=== PATIENT | male | born 1975 | race Caucasian/White ===

== ENCOUNTER 2016-07-14 20:11 | Emergency (ER) | payer BC ==
[2016-02-14 13:26] VITALS: BMI 33.2
[~2016-07-14 20:11] MED LIST: ELAVIL25 MG PO; FLAGYL500 MG PO; LEVAQUIN500 MG PO; LISINOPRIL5 MG PO
== END 2016-07-14 23:33 | disposition left against medical advice (07) ==
LOC: D.ER 20:11
DX: G89.18 Other acute postprocedural pain (principal)

== ENCOUNTER 2016-10-22 11:45 | Emergency (ER) | payer BC ==
[2016-02-14 13:26] VITALS: BMI 33.2
[2016-10-22 12:13] LABS: BASOPHILS 0.4 % (0-2); EOSINOPHILS 1.1 % (0-7); HEMATOCRIT 47.7 % (42.0-54.0); HEMOGLOBIN 16.7 g/dL (13.5-17.5); IMMATURE GRANULOCYTES 0.1 % (0-5); MCH 31.3 pg (26.0-34.0); MCV 89.5 fL (80.0-100.0); NEUTROPHILS 61.4 % (40-80); PLATELET COUNT 206 10x3/uL (130-400); RBC 5.33 10x6/uL (4.20-6.10); RDW 12.8 % (11.5-14.5); WBC 7.1 10x3/uL (4.8-10.8)
[2016-10-22 12:18] LABS: APPEARANCE CLEAR (CLEAR); BILIRUBIN NEGATIVE (NEGATIVE); COLOR YELLOW (YELLOW); GLUCOSE NEGATIVE (NEGATIVE); KETONE NEGATIVE (NEGATIVE); LEUKOCYTE ESTERASE NEGATIVE (NEGATIVE); NITRITE NEGATIVE (NEGATIVE); PROTEIN NEGATIVE (NEGATIVE); UROBILINOGEN NORMAL (NORMAL)
[2016-10-22 12:31] LABS: UDS - AMPHET NEGATIVE QUAL (NEGATIVE); UDS - BARB NEGATIVE QUAL (NEGATIVE); UDS - BENZO POSITIVE QUAL (NEGATIVE); UDS - COCAINE NEGATIVE QUAL (NEGATIVE); UDS - METH NEGATIVE QUAL (NEGATIVE); UDS - OPIATE NEGATIVE QUAL (NEGATIVE); UDS - PCP NEGATIVE QUAL (NEGATIVE); UDS - THC POSITIVE QUAL (NEGATIVE)
[2016-10-22 12:33] LABS: ALBUMIN 3.6 g/dL (3.4-5.0); ALKALINE PHOSPHATASE 115 U/L (46-116); ALT (SGPT) 243 U/L (10-68); BILIRUBIN - TOTAL 0.41 mg/dL (0.2-1.3); CALC OSMOLALITY 281 mosm/kg (275-300); CARBON DIOXIDE 27.6 mmol/L (21.0-32.0); CHLORIDE - SERUM 106 mmol/L (98-107); GLUCOSE 99 mg/dL (74-106); POTASSIUM - SERUM 4.4 mmol/L (3.5-5.1); PROTEIN - SERUM 7.6 g/dL (6.4-8.2); SODIUM 142 mmol/L (136-145); UREA NITROGEN 10 mg/dL (7-18); eGFR NON AFRICAN AMERICAN 87 mL/min (90-120)
== END 2016-10-22 16:05 | disposition home or self-care (01) ==
LOC: D.ER 11:45
PROVIDERS: Emergency Medicine
DX: R45.851 Suicidal ideations (principal); I10 Essential (primary) hypertension; F32.9 Major depressive disorder, single episode, unspecified

== ENCOUNTER 2016-12-20 17:59 | Emergency (ER) | payer BC ==
[2016-02-14 13:26] VITALS: BMI 33.2
[2016-12-20 19:16] LABS: BASOPHILS 0.4 % (0-2); EOSINOPHILS 3.5 % (0-7); HEMATOCRIT 47.4 % (42.0-54.0); HEMOGLOBIN 16.6 g/dL (13.5-17.5); IMMATURE GRANULOCYTES 0.3 % (0-5); LYMPHOCYTES 34.3 % (15-50); MCH 31.2 pg (26.0-34.0); MCV 89.1 fL (80.0-100.0); MEAN PLATELET VOLUME 9.4 fL (7.4-10.4); MONOCYTES 10.5 % (2-11); PLATELET COUNT 205 10x3/uL (130-400); RBC 5.32 10x6/uL (4.20-6.10); RDW 12.5 % (11.5-14.5); WBC 7.5 10x3/uL (4.8-10.8)
[2016-12-20 19:29] LABS: ALBUMIN 3.6 g/dL (3.4-5.0); ALKALINE PHOSPHATASE 89 U/L (46-116); ALT (SGPT) 78 U/L (10-68); BILIRUBIN - TOTAL 0.48 mg/dL (0.2-1.3); CALC OSMOLALITY 273 mosm/kg (275-300); CALCIUM 8.9 mg/dL (8.5-10.1); CARBON DIOXIDE 29.3 mmol/L (21.0-32.0); CHLORIDE - SERUM 102 mmol/L (98-107); CREATININE - SERUM 1.1 mg/dL (0.6-1.3); GLUCOSE 80 mg/dL (74-106); POTASSIUM - SERUM 3.6 mmol/L (3.5-5.1); PROTEIN - SERUM 7.6 g/dL (6.4-8.2); SODIUM 138 mmol/L (136-145); UREA NITROGEN 9 mg/dL (7-18); eGFR NON AFRICAN AMERICAN 78 mL/min (90-120)
[2016-12-20 19:41] LABS: CKMB 0.3 U/L (0.0-3.6); CREATINE KINASE 80 UL (21-232)
[2016-12-20 19:54] LABS: TROPONIN-I < 0.017 ng/mL (0.000-0.060)
== END 2016-12-20 21:55 | disposition home or self-care (01) ==
LOC: D.ER 17:59
PROVIDERS: Emergency Medicine
DX: R07.9 Chest pain, unspecified (principal); I25.10 Atherosclerotic heart disease of native coronary artery without angina pectoris; I10 Essential (primary) hypertension; R00.1 Bradycardia, unspecified; R11.2 Nausea with vomiting, unspecified

== ENCOUNTER 2016-12-25 14:23 | Observation (INO) | payer BC ==
[~2016-12-25] VITALS: Ht 182.9 cm; Wt 123.6 kg
--- NOTE | ~2016-12-25 | DS ---
PATIENT:RUTH LOPEZ :73 MEDICAL RECORD: [id number] DISCHARGE SUMMARY ADMISSION DATE: 12/25/16 DISCHARGE DATE: 12/28/16 DISCHARGE DIAGNOSES: Distal esophageal ulcers, hiatal hernia, antral ulcers, erosive esophagitis, atypical chest pain, symptomatic bradycardia, obesity. CONSULTANTS: Dr. Ely from cardiology, Dr. Masterson, GI. HOSPITAL COURSE: A 41-year-old male admitted with left anterior chest pain radiating to his jaw and arm. He is also bradycardic with a rate in the mid 30s. He was placed on telemetry and did show evidence of significant bradycardia, but no pauses. Cardiology and GI consults were obtained. Initial cardiac enzymes were unremarkable. Echocardiogram showed normal LV function. Dr. Ely felt the patient had a hypercholinergic cause for his bradycardia due to possibly his chest pain and/or gastrointestinal etiology. He underwent an EGD showing above findings. He is overall feeling better after 2 days of IV Protonix. A Transderm Scop patch was placed last night and his heart rate did improve in the upper 50s to low 60s. To be discharged in improved condition and followup in my office in [address] Masterson's office in 2 months for repeat EGD. DISCHARGE MEDICATIONS: Prilosec 40 mg p.o. q.a.m., famotidine 40 mg p.o. at bedtime. He will not take any NSAID currently. Xanax 0.5 at h.s. p.r.n. anxiety, tramadol 50 mg 1-2 q.6 hours for severe pain. ACTIVITY: Progress as tolerated. DIET: Low cholesterol. FOLLOWUP: Return to clinic to see me in 1 week. TRANSINT:[id number] Voice Confirmation ID: [id number] DOCUMENT ID: [id number] DAVID MARIA MD CC: [id number] DICTATION DATE: 12/28/16806 COMPUTER SCIENCE INTERN: 12/29/16 0044 DIS IN 12/28/16 [place] [id number] [place] [id number]
--- NOTE | 2016-12-25 15:03 | NUR ---
TRANSFER FROM ADMISSIONS BY W/C. OREINTED TO ROOM. CALL LIGHT IN REACH. WILL CONT. PLAN OF CARE.
[2016-12-25 15:13] VITALS: BP 112/65; Ht 182.9 cm; Wt 123.6 kg
[2016-12-25] MEDS ORDERED: XANAX0.5 MG PO (15:18)
--- NOTE | 2016-12-25 16:00 | NUR ---
IV STARTED TO RIGHT AC WITH 22 GAUGE CATH X 1 STICK AND FLUSHED WITH NS. LINE IS PATENT.
[2016-12-25 17:01] LABS: BASOPHILS 0.4 % (0-2); EOSINOPHILS 2.6 % (0-7); HEMATOCRIT 46.9 % (42.0-54.0); HEMOGLOBIN 16.5 g/dL (13.5-17.5); IMMATURE GRANULOCYTES 0.3 % (0-5); LYMPHOCYTES 29.1 % (15-50); MCH 31.5 pg (26.0-34.0); MCHC 35.2 g/dL (31.0-37.0); MCV 89.7 fL (80.0-100.0); MEAN PLATELET VOLUME 9.3 fL (7.4-10.4); MONOCYTES 12.9 % (2-11); NEUTROPHILS 54.7 % (40-80); PLATELET COUNT 196 10x3/uL (130-400); RBC 5.23 10x6/uL (4.20-6.10); RDW 12.2 % (11.5-14.5); WBC 7.5 10x3/uL (4.8-10.8)
[2016-12-25 17:43] VITALS: BP 112/65
[2016-12-25 17:51] LABS: ALBUMIN 3.7 g/dL (3.4-5.0); ALKALINE PHOSPHATASE 94 U/L (46-116); ALT (SGPT) 69 U/L (10-68); BILIRUBIN - TOTAL 0.28 mg/dL (0.2-1.3); CALC OSMOLALITY 273 mosm/kg (275-300); CALCIUM 8.8 mg/dL (8.5-10.1); CHLORIDE - SERUM 103 mmol/L (98-107); CKMB 0.3 U/L (0.0-3.6); CREATINE KINASE 88 UL (21-232); CREATININE - SERUM 0.9 mg/dL (0.6-1.3); GLUCOSE 68 mg/dL (74-106); POTASSIUM - SERUM 4.2 mmol/L (3.5-5.1); PROTEIN - SERUM 7.3 g/dL (6.4-8.2); SODIUM 139 mmol/L (136-145); T4 THYROXINE 6.2 ug/dL (4.7-13.3); THYROID STIMULATING HORMONE 2.47 uIU/mL (0.36-3.74); TROPONIN-I < 0.017 ng/mL (0.000-0.060); UREA NITROGEN 8 mg/dL (7-18); eGFR NON AFRICAN AMERICAN > 90 mL/min (90-120)
--- NOTE | 2016-12-25 18:16 | HP ---
PATIENT: RUTH LOPEZ MEDICAL RECORD: [id number] ACCOUNT: [id number] LOCATION:[address] : 74 ADMISSION DATE: 12/25/16 HISTORY AND PHYSICAL EXAMINATION REASON FOR ADMISSION: Chest and neck pain and symptomatic bradycardia. HISTORY OF PRESENT ILLNESS: The patient is a 41-year-old male with history of essential hypertension, remote alcohol excess and obesity. He states approximately 5 days ago, he felt lightheaded, trying to get out of his truck, he almost fainted. His had an O2 sat finger monitor and noticed that his heart rate was in the mid 30s. He also had experienced some left-sided chest discomfort into his left neck and arm. He had no nausea or vomiting. He presented to the Emergency Room, was evaluated by Dr. Arguello. His heart rate was in the upper 40s, cardiac enzymes, CBC and BMP were all normal and EKG was reported as unremarkable as well as a chest x-ray. Thyroid functions were not obtained. He was given analgesics and his pain improved and he went home. He says the chest pain has come back. It waxes and wanes, but not totally resolved. It does not seem to be exertional. He stands up too quickly and gets very lightheaded. His heart rate has been as low as 29 beats per minute, he states. He presented in my office with these complaints. Today, his heart rate was in the mid 40s. His EKG shows sinus bradycardia with a flipped T-wave in lead III, but did not have this in prior EKG. Because of his chest pain and bradycardia, he is now being admitted to the hospital observation unit for telemetry and cardiology consultation. PAST MEDICAL HISTORY: Essential hypertension, anxiety, alcohol excess currently abstinent, PTSD, depression, history of colitis and transrectal bleeding in 2016. Socially, he denies smoking. He had history of heavy alcohol use, quit in the last 6 months. 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 ALLERGIES: None known. CURRENT MEDICATIONS: Xanax 0.5 at h.s. p.r.n. anxiety. He has stopped his lisinopril. 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 He used to drink heavily, quit about 6 months ago when he had an increasing anxiety and trouble with PTSD. FAMILY HISTORY: His father of lung cancer, also had CAD and heart disease and a sick sinus syndrome with a pacemaker. Mother had history of cardiac arrhythmias, type unknown. REVIEW OF SYSTEMS: GENERAL: He has been very fatigued for the last week. No fever. HEENT: No recent visual change, sinus congestion, or sore throat. RESPIRATORY: No severe cough. CARDIAC: No exertional chest pain, but has had continuous pain, dull and aching in his left chest up into his neck and arm, shoulder area, not below the elbow. Not related to activity. No nausea or vomiting associated with it. He states his heart has been very low as low as 29 beats per minute based on O2 sat HISTORY AND PHYSICAL [id number] RUTH LOPEZ DAFNE monitor his purchased. It has not been over 50, he says, much in the last 5 days. GENITOURINARY: No dysuria or nocturia. ENDOCRINE: He denies polyuria, polydipsia, heat or cold intolerance. NEUROLOGIC: No history of stroke, TIA, or vascular headaches. He is not complaining of significant dizziness that relates to his low heart rate. INTEGUMENT: No rash or itching. PSYCHIATRIC: Admits to anxiety, but not depressed mood. He has trouble with chronic insomnia. PHYSICAL EXAMINATION: VITAL SIGNS: Heart rate is 45 beats per minute and regular. Blood pressure 132/70, O2 sat 97% on room air. Height is 5 feet 10 inches, weight 276 pounds, BMI of 39.6. GENERAL: The patient is alert and anxious. HEENT: Eyes are clear. Oropharynx unremarkable. NECK: Supple, without bruits or masses. CHEST: Clear without wheeze or rales. HEART: Bradycardic without murmur. Chest wall is nontender. ABDOMEN: Obese, soft, and nontender. EXTREMITIES: No gross edema. He has post-surgical changes in index fingers bilaterally. INTEGUMENTARY: No rash appreciated. PSYCHIATRIC: He is anxious, but denies major depressive symptoms. LABORATORY DATA: From [facility] a week ago was essentially normal. DIAGNOSTIC DATA: EKG shows sinus bradycardia with inverted T-wave in lead III. ASSESSMENT: 1. Atypical chest pain. 2. Essential hypertension, currently noncompliant with lisinopril. 3. Bradycardia, symptomatic (?). 4. Posttraumatic stress disorder. 5. History of colitis. PLAN: The patient will be admitted to observation for cardiac monitoring, cardiac enzymes. Further workup pending clinical course. TRANSINT:[id number] Voice Confirmation ID: [id number] DOCUMENT ID: [id number] DAVID MARIA MD at 1816 CC: [id number] DICTATION DATE: 12/25/16 1324 DAMPER FITTER: 12/25/16 1434 ADM IN [place] [id number] [place] [id number]
[2016-12-25 20:00] VITALS: BP 120/88
--- NOTE | 2016-12-25 20:51 | NUR ---
PT RESTLESS. C/O PAIN 10/10 IN CHEST AREA. MEDICATED WITH MORPHINE 2MG SIVP FOR CHEST PAIN. SR PER TELEMETRY. PIV TO RIGHT A/C. WILL MONITOR RESPONSE TO PAIN MEDS/XANAX GIVEN. SEE ASSESSMENT AND MONITOR.
[2016-12-25 21:38] LABS: HELICOBACTER PYLORI IGG NEGATIVE (NEGATIVE)
--- NOTE | 2016-12-26 04:55 | NUR ---
PT RESTING WELL, HAS AWAKENED ONCE AND REQUESTED PAIN MEDS FOR RECURRENT CHEST PAIN. AFTER ADMINISTERING IV MORPHINE, PT BACK TO SLEEP. NPO UNTIL SEEN BY MOLDED GOODS INSPECTOR TRIMMER. CPOC.
[2016-12-26 06:26] LABS: AMYLASE - SERUM 60 U/L (25-115); LIPASE 127 U/L (73-393)
--- NOTE | 2016-12-26 07:53 | NUR ---
RESTING QUIETLY RESP UNLABORED DENIES ANY NEEDS AT THIS TIME
[2016-12-26 09:26] VITALS: BP 113/59
[2016-12-26 16:30] VITALS: BP 113/63
[2016-12-26 17:59] VITALS: BP 135/77
--- NOTE | 2016-12-26 21:37 | NUR ---
MEDICATED WITH BEDTIME MEDS AND REQUESTED DILAUDID FOR ABDOMINAL/CHEST PAIN 12/14.
[2016-12-27 01:10] VITALS: BP 121/69
[2016-12-27 05:04] VITALS: BP 120/69
[2016-12-27 05:57] LABS: BASOPHILS 0.4 % (0-2); EOSINOPHILS 3.9 % (0-7); HEMATOCRIT 49.4 % (42.0-54.0); HEMOGLOBIN 17.1 g/dL (13.5-17.5); IMMATURE GRANULOCYTES 0.2 % (0-5); LYMPHOCYTES 32.3 % (15-50); MCH 31.4 pg (26.0-34.0); MCHC 34.6 g/dL (31.0-37.0); MCV 90.6 fL (80.0-100.0); MEAN PLATELET VOLUME 9.5 fL (7.4-10.4); MONOCYTES 13.6 % (2-11); NEUTROPHILS 49.6 % (40-80); PLATELET COUNT 193 10x3/uL (130-400); RBC 5.45 10x6/uL (4.20-6.10); RDW 12.5 % (11.5-14.5)
[2016-12-27 06:01] LABS: WBC 5.1 10x3/uL (4.8-10.8)
[2016-12-27 06:10] LABS: INR 0.99 (0.85-1.17); PROTIME 12.9 SECONDS (11.6-15.0)
[2016-12-27 06:16] LABS: ALBUMIN 3.3 g/dL (3.4-5.0); ALKALINE PHOSPHATASE 87 U/L (46-116); ALT (SGPT) 77 U/L (10-68); AMYLASE - SERUM 69 U/L (25-115); CALC OSMOLALITY 269 mosm/kg (275-300); CALCIUM 8.4 mg/dL (8.5-10.1); CARBON DIOXIDE 28.8 mmol/L (21.0-32.0); CHLORIDE - SERUM 101 mmol/L (98-107); GLUCOSE 71 mg/dL (74-106); SODIUM 136 mmol/L (136-145); eGFR NON AFRICAN AMERICAN 87 mL/min (90-120)
[2016-12-27 06:17] LABS: UREA NITROGEN 12 mg/dL (7-18)
[2016-12-27 08:32] VITALS: BP 130/76
--- NOTE | 2016-12-27 10:16 | NUR ---
TELEMETRY SR. NPO FOR EGD. CONCENTS SIGNED.
[2016-12-27 11:59] VITALS: BP 153/86
[2016-12-27 15:24] VITALS: BP 159/99
--- NOTE | 2016-12-27 15:38 | NUR ---
PRE-OPS GIVEN. TO GI LAB BY BED.
--- NOTE | 2016-12-27 19:25 | NUR ---
RESUMED CARE OF PT, LYING IN BED RESPIRATIONS EVEN AND UNLABORED ON ROOM AIR. REQUESTS DILAUDID FOR PAIN. 62 SR ON TELEMETRY. RIGHT AC SALINE LOCKED. CALL LIGHT IN REACH. WILL CONTINUE TO MONITOR. SEE NURSE ASSESSMENT.
[2016-12-27 20:00] VITALS: BP 134/82
--- NOTE | 2016-12-28 01:07 | NUR ---
CALL LIGHT IN REACH. WILL CONTINUE TO MONITOR.
[2016-12-28 05:11] VITALS: BP 113/60
[2016-12-28] MEDS ORDERED: OMEPRAZOLE40 MG PO (08:08)
[2016-12-28] MEDS ORDERED: PEPCID40 MG PO (08:08)
[2016-12-28] MEDS ORDERED: TRANSDERM-SCO1 PATCH TRANSDERM (08:12)
[2016-12-28] MEDS ORDERED: ULTRACET TABLET1 TAB PO (08:13)
[2016-12-28 08:33] VITALS: BP 147/94
--- NOTE | 2016-12-28 09:52 | NUR ---
IV AND TELEMETRY DCD. DC PLANS GIVEN. UNDERSTANDING VOICED. ESCORTED TO CAR BY W/C.
== END 2016-12-28 09:53 | disposition home or self-care (01) ==
LOC: D.M2 14:23 → OBSVTIME 14:23 → D.M2 14:23
PROVIDERS: Internal Medicine Gastroenterology; ADMIT Family Medicine
DX: K22.10 Ulcer of esophagus without bleeding (principal); K44.9 Diaphragmatic hernia without obstruction or gangrene; K25.9 Gastric ulcer, unspecified as acute or chronic, without hemorrhage or perforation; R00.1 Bradycardia, unspecified; I10 Essential (primary) hypertension; E66.9 Obesity, unspecified; F41.8 Other specified anxiety disorders; F43.10 Post-traumatic stress disorder, unspecified

== ENCOUNTER → 2017-01-15 09:47 | Outpatient (CLI) | payer BC ==
[2016-12-25 15:13] VITALS: BMI 36.9
[~2017-01-15 09:47] MED LIST changes: +OMEPRAZOLE40 MG PO; +PEPCID40 MG PO; +TRANSDERM-SCO1 PATCH TRANSDERM; +ULTRACET TABLET1 TAB PO; +XANAX0.5 MG PO
== END | disposition home or self-care (01) ==
LOC: D.MRI 09:47
DX: G54.3 Thoracic root disorders, not elsewhere classified (principal)

== ENCOUNTER → 2017-12-26 14:15 | Outpatient (CLI) | payer BC ==
[2016-12-25 15:13] VITALS: BMI 36.9
[~2017-12-26 14:15] MED LIST changes: +FLORAJEN3 CAPS460 MG PO; +KEFLEX500 MG PO
== END | disposition home or self-care (01) ==
LOC: D.CT 14:15
DX: K62.3 Rectal prolapse (principal)

== ENCOUNTER 2018-01-21 19:49 | Inpatient (IN) | payer OTHER ==
[~2018-01-21] VITALS: Ht 182.9 cm; Wt 94.5 kg
[~2018-01-21 19:49] MED LIST changes: -FLORAJEN3 CAPS460 MG PO; -KEFLEX500 MG PO
[2018-01-21 21:03] LABS: BASOPHILS 0.2 % (0-2); EOSINOPHILS 1.6 % (0-7); HEMATOCRIT 45.8 % (42.0-54.0); HEMOGLOBIN 16.6 g/dL (13.5-17.5); IMMATURE GRANULOCYTES 0.2 % (0-5); MCH 31.6 pg (26.0-34.0); MCHC 36.2 g/dL (31.0-37.0); MCV 87.1 fL (80.0-100.0); MONOCYTES 11.3 % (2-11); NEUTROPHILS 62.7 % (40-80); PLATELET COUNT 219 10x3/uL (130-400); RBC 5.26 10x6/uL (4.20-6.10); RDW 12.6 % (11.5-14.5)
[2018-01-21 21:19] LABS: ALKALINE PHOSPHATASE 71 U/L (46-116); ALT (SGPT) 25 U/L (10-68); BILIRUBIN - TOTAL 0.37 mg/dL (0.2-1.3); CALC OSMOLALITY 282 mosm/kg (275-300); CALCIUM 9.1 mg/dL (8.5-10.1); CARBON DIOXIDE 26.1 mmol/L (21.0-32.0); CHLORIDE - SERUM 105 mmol/L (98-107); GLUCOSE 87 mg/dL (74-106); POTASSIUM - SERUM 4.7 mmol/L (3.5-5.1); SODIUM 141 mmol/L (136-145); UREA NITROGEN 21 mg/dL (7-18); eGFR NON AFRICAN AMERICAN 87 mL/min (90-120)
[2018-01-21 21:24] LABS: C-REACTIVE PROTEIN < 0.2 mg/dL (0.0-0.9)
[2018-01-22 05:02] LABS: BASOPHILS 0.2 % (0-2); EOSINOPHILS 1.7 % (0-7); HEMATOCRIT 43.8 % (42.0-54.0); HEMOGLOBIN 15.6 g/dL (13.5-17.5); IMMATURE GRANULOCYTES 0.2 % (0-5); LYMPHOCYTES 29.5 % (15-50); MCH 31.3 pg (26.0-34.0); MCHC 35.6 g/dL (31.0-37.0); MCV 87.8 fL (80.0-100.0); MEAN PLATELET VOLUME 8.9 fL (7.4-10.4); MONOCYTES 10.7 % (2-11); NEUTROPHILS 57.7 % (40-80); PLATELET COUNT 195 10x3/uL (130-400); RBC 4.99 10x6/uL (4.20-6.10); RDW 12.7 % (11.5-14.5)
[2018-01-22 05:08] LABS: WBC 8.6 10x3/uL (4.8-10.8)
[2018-01-22 05:20] LABS: ALBUMIN 3.6 g/dL (3.4-5.0); ALKALINE PHOSPHATASE 54 U/L (46-116); ALT (SGPT) 22 U/L (10-68); BILIRUBIN - TOTAL 0.48 mg/dL (0.2-1.3); CALC OSMOLALITY 278 mosm/kg (275-300); CALCIUM 8.3 mg/dL (8.5-10.1); CARBON DIOXIDE 27.2 mmol/L (21.0-32.0); CHLORIDE - SERUM 106 mmol/L (98-107); GLUCOSE 92 mg/dL (74-106); POTASSIUM - SERUM 3.9 mmol/L (3.5-5.1); PROTEIN - SERUM 6.8 g/dL (6.4-8.2); SODIUM 139 mmol/L (136-145); UREA NITROGEN 16 mg/dL (7-18); eGFR NON AFRICAN AMERICAN 87 mL/min (90-120)
[2018-01-22 09:23] VITALS: BP 141/93
[2018-01-22 15:29] VITALS: BP 167/78; BMI 28.2
[2018-01-22 19:43] VITALS: Ht 182.9 cm; Wt 94.5 kg
[2018-01-22 20:00] VITALS: BP 136/87
[2018-01-23 04:00] VITALS: BP 160/102
[2018-01-23 06:13] LABS: BASOPHILS 0.2 % (0-2); EOSINOPHILS 3.3 % (0-7); HEMATOCRIT 43.5 % (42.0-54.0); HEMOGLOBIN 15.3 g/dL (13.5-17.5); IMMATURE GRANULOCYTES 0.1 % (0-5); MCH 30.6 pg (26.0-34.0); MCHC 35.2 g/dL (31.0-37.0); MEAN PLATELET VOLUME 9.2 fL (7.4-10.4); MONOCYTES 9.4 % (2-11); PLATELET COUNT 196 10x3/uL (130-400); RDW 12.4 % (11.5-14.5); WBC 9.1 10x3/uL (4.8-10.8)
[2018-01-23 06:30] LABS: ALBUMIN 3.4 g/dL (3.4-5.0); ALKALINE PHOSPHATASE 46 U/L (46-116); ALT (SGPT) 25 U/L (10-68); BILIRUBIN - TOTAL 0.59 mg/dL (0.2-1.3); CALC OSMOLALITY 277 mosm/kg (275-300); CALCIUM 8.3 mg/dL (8.5-10.1); CARBON DIOXIDE 28.5 mmol/L (21.0-32.0); CHLORIDE - SERUM 104 mmol/L (98-107); CREATININE - SERUM 0.9 mg/dL (0.6-1.3); GLUCOSE 91 mg/dL (74-106); POTASSIUM - SERUM 3.4 mmol/L (3.5-5.1); PROTEIN - SERUM 6.9 g/dL (6.4-8.2); SODIUM 140 mmol/L (136-145); eGFR NON AFRICAN AMERICAN > 90 mL/min (90-120)
[2018-01-23 06:33] LABS: UREA NITROGEN 10 mg/dL (7-18)
[2018-01-23 07:57] VITALS: BP 190/158
[2018-01-23 09:19] LABS: FOLATE (FOLIC ACID) - SERUM 10.5 ng/mL (>3.0)
[2018-01-23 11:18] VITALS: BP 152/95
[2018-01-23 11:23] LABS: CA 19-9 7 U/mL (0-35); CEA 1.6 ng/mL (0.0-4.7)
[2018-01-23] MEDS ORDERED: FLORAJEN3 CAPS460 MG PO (14:36)
[2018-01-23] MEDS ORDERED: KEFLEX500 MG PO (14:42)
[2018-01-23 15:28] LABS: HEPATITIS C ANTIBODY <0.1 (0.0-0.9)
[2018-01-25 18:10] LABS: HGB - A 97.9 % (96.4-98.8); HGB - A2 2.1 % (1.8-3.2); HGB - INTERPRETATION Note: (()); HGB - SOLUBILITY Negative (Negative)
== END 2018-01-23 15:29 | disposition home or self-care (01) | DRG 603 ==
LOC: D.ER 19:49 → D.EDHOLD 01-22 01:36 → D.M2 01-22 01:36 → D.EDHOLD 01-22 07:13 → D.M2 01-22 13:52
PROVIDERS: Family Medicine; Internal Medicine Hematology & Oncology
PROC: 3E023KZ Introduction of Other Diagnostic Substance into Muscle, Percutaneous Approach (ICD-10-PCS; principal; 2018-01-22)
DX: L03.113 Cellulitis of right upper limb (principal); I10 Essential (primary) hypertension; G47.33 Obstructive sleep apnea (adult) (pediatric); F10.21 Alcohol dependence, in remission; R63.4 Abnormal weight loss; Z68.28 Body mass index [BMI] 28.0-28.9, adult